=== PATIENT | female | born 1925 | race Caucasian/White ===

== ENCOUNTER 2016-10-05 14:26 | Emergency (ER) | payer MEDICARE, OTHER ==
[~2016-10-05] VITALS: Ht 165.1 cm; Wt 64.5 kg
[~2016-10-05 14:26] MED LIST: ALEN70TA2 PO; CHOL200047 PO; CRAN1CAP5 PO; DEXT1DRO8 BOTH_EYES; DIGO125T73 PO; FURO40TA4 PO; GABA-502 PO; LIDO700A6 TOPICAL; MELA1TAB16 PO; METO-272 PO; OXYB5TAB PO; POTA10CA42 PO; PSYL1CAP3 PO; TRAM50TA2 PO
[2016-10-05 14:37] VITALS: BP 118/70; PULSE 66; RESP 16; O2SAT 94
--- NOTE | 2016-10-05 14:43 | ED.REPORT ---
HPI-Abd Pain F 40 and Over Date of Service Oct 05, 2016 ED Provider: Dr. Finn Pt is an 89 year old female with a hx of HTN, chronic RLQ abdominal pain, chronic UTI, and Afib on Warfarin presenting to the ED complaining of waking up with blood in her mouth for the past week. Associated symptoms include abdominal pain and constipation, stating that she has bowel movements about every 2-3 weeks. She states that there is a tablespoon amount of bright red blood in her mouth when she wakes up. Denies vomiting, hematemesis, diarrhea, black/tarry stool, urinary issues, sore throat. Pt reports that she has had RLQ pain for years. Nursing Notes Stated Complaint: ABDOMINAL PAIN,BLEEDING IN MOUTH Chief Complaint: Female Abdominal Pain Nursing Notes Reviewed: Yes Allergies: Coded Allergies: ciprofloxacin (Verified Allergy, Unknown, UNKNOWN, 10/05/16) hydrocodone (Verified Allergy, Unknown, UNKNOWN, 10/05/16) oxycodone (Verified Allergy, Unknown, UNKNOWN, 10/05/16) propoxyphene napsylate (Verified Allergy, Unknown, UNKNOWN NOT ALLERGIC TO TYLENOL, 10/05/16) codeine (Verified Adverse Reaction, Severe, NAUSEA,HEADACHE, 10/05/16) Scheduled Alendronate Sodium (Fosamax) 70 Mg Tablet 70 MG PO WKLY Cephalexin (Keflex) 500 Mg Capsule 500 MG PO QID Cholecalciferol (Vitamin D3) (Vitamin D3) 2,000 Unit Capsule 2,000 UNIT PO DAILY Cranberry Extract/Vit C (Azo Cranberry Softgel) 1 Each Capsule 1 EACH PO BID Digoxin (Digoxin) 125 Mcg Tablet 125 MCG PO DAILY Furosemide (Furosemide) 40 Mg Tablet 40 MG PO DAILY Gabapentin (Gabapentin) 300 Mg Capsule 300 MG PO HS Lidocaine (Lidoderm) 700 Mg Adh..patch 1 PATCH TOPICAL DAILY Melatonin/Pyridoxine (Melatonin 5 mg Tablet) 1 Each Tablet 1 EACH PO HS Metoprolol Succinate ER (Metoprolol Succinate ER) 50 Mg Tab.er.24h 50 MG PO BID Oxybutynin Chloride ER (Oxybutynin Chloride ER) 5 Mg Tab.er.24 5 MG PO DAILY Pantoprazole DR (Pantoprazole DR) 40 Mg Tablet.dr 40 MG PO BID Potassium Chloride (Potassium Chloride) 10 Meq Capsule.er 20 MEQ PO BID TAKE WITH FOOD Psyllium Husk/Ca Carbonate (Metamucil Plus Calcium Capsule) 1 Each Capsule 2 EACH PO DAILY Scheduled PRN Dextran 70/Hypromellose/Pf (Artificial Tears Drops) 1 Each Droperette 1 DROP BOTH_EYES PRN PRN PRN DRY EYES Tramadol (Tramadol) 50 Mg Tablet 50 MG PO Q4H PRN PRN For Pain General Time Seen by MD: 14:42 Chief Complaint Abdominal pain, Other (Bleeding in mouth) Hx Obtained From: Patient, Daughter Arrived By: Walk-in Sudden in Onset?: No Onset Occurred: 1 week ago Symptom Duration: Since onset Progression since Onset: Constant Location: : RLQ Quality: Painful Severity: Current: Moderate Severity: Maximum: Severe Recent Healthcare: No recent hospitalization, Recent doctor visit Similar Sx Previous: No Past Medical History Past Medical History COPD Osteoarthritis Atrial fibrillation on Warfarin Chronic abdominal pain Chronic UTI Past Surgical History Hip replacements Right shoulder surgery Pacemaker Family History Congenital heart disease as well as cancer. Smoking History Former Smoker Social History Drug Use: Denies drug use Other Social History: Good social support, Local resident Ambulatory Status Independent Review of Systems Reports bleeding in mouth GI: Reports: Abdominal pain, Constipation, Denies: Bloody/tarry stool, Diarrhea, Hematemesis, Nausea, Vomiting Complete sys rev & neg: except as marked. Ears / Nose / Throat: Denies: Sore throat Physical Exam Vital Signs Vital Signs (First) Date Time Temp Pulse Resp B/P Pulse Ox O2 Delivery O2 Flow Rate FiO2 10/05/16 14:37 37.2 66 16 118/70 94 Room Air Initial VS: Reviewed Head / Eyes: Atraumatic, Normocephalic, PERRL Neck: Supple, Non-tender, Full range of motion Extremities: Vascular intact, Neuro intact, No swelling, No tenderness Skin: Warm, Dry, No cyanosis Neurologic: Alert, Oriented, Nonfocal Psychiatric: Mood/affect normal, Behavior normal, Normal thought content General/Constitutional: Awake, Alert Respiratory / Chest: Atraumatic, Breath sounds NL, Breath sounds = bilat, No respiratory distress Cardiovascular: Heart rate NL, Regular rhythm, Heart sounds NL Heart Rate / Rhythm: Positive: Irregular rhythm Abdomen: Atraumatic Tenderness/Guarding/Rebound: Positive: Tender RLQ... (Moderate) Fullness and tenderness in RLQ Back: Atraumatic, Inspection NL, Full range of motion ENT: Atraumatic, Airway patent, Mucous membranes moist, Pharynx NL No blood in the oropharynx Interpretation & Diagnostics Lab Results Interpretation Result Diagram: 10/05/16 1445 10/05/16 1445 Test 10/05/16 14:45 10/05/16 15:31 White Blood Count 5.9th/mm3 (3.8-10.1) Red Blood Count 4.02mil/mm3 (3.90-5.20) Hemoglobin 13.0g/dL (12.0-15.6) Hematocrit 40.2% (35.0-46.0) Mean Corpuscular Volume 100.0fL (81-100) Mean Corpuscular Hemoglobin 32.3pg (27.0-35.0) Mean Corpuscular Hemoglobin Concent 32.3% (32.0-37.0) Red Cell Distribution Width 13.9% (12.3-15.4) Platelet Count 204bil/L (150-400) Neutrophils (%) (Auto) 55.9% (40-74) Lymphocytes (%) (Auto) 30.9% (14-46) Monocytes (%) (Auto) 10.1% (4-12) Eosinophils (%) (Auto) 2.6% (0-5) Basophils (%) (Auto) 0.3% (0-3) Prothrombin Time 11.3sec (8.1-12.5) Prothromb Time International Ratio 1.05ratio Sodium Level 135mEq/L (134-144) Potassium Level 4.4mEq/L (3.5-5.2) Chloride Level 99mEq/L (97-108) Carbon Dioxide Level 23mmol/L (18-29) Blood Urea Nitrogen 16mg/dL (8-27) Creatinine 0.48mg/dL (0.57-1.00) Estimat Glomerular Filtration Rate 175mL/min (>59) Glucose Level 131mg/dL (60-99) Lactic Acid Level 1.3mmol/L (0.4-2.0) Calcium Level 9.3mg/dL (8.5-10.1) Magnesium Level 1.9mg/dL (1.6-2.6) Total Bilirubin 0.5mg/dL (0.0-1.2) Aspartate Amino Transf (AST/SGOT) 18U/L (0-50) Alanine Aminotransferase (ALT/SGPT) 10U/L (0-32) Alkaline Phosphatase 76U/L (25-165) Total Protein 6.3g/dL (6.4-8.4) Albumin 3.7g/dL (3.4-5.0) Lipase 27U/L (13-60) Digoxin Level 0.6nG/mL (0.9-2.0) Urine Color Yellow (YELLOW) Urine Appearance Slightly cloudy Urine pH 5.0 (5.0-8.0) Urine Specific [place] 1.020 (1.003-1.035) Urine Protein Negativemg/dL (NEG,TRACE) Urine Glucose (UA) Negativemg/dL (NEGATIVE) Urine Ketones Negativemg/dL (NEGATIVE) Urine Occult Blood Moderate (NEGATIVE) Urine Nitrite Positive (NEGATIVE) Urine Bilirubin Negative (NEGATIVE) Urine Urobilinogen Normalmg/dL (NORMAL) Urine Leukocyte Esterase Small (NEGATIVE) Urine RBC 3-10/hpf (0-2) Urine WBC 11-50/hpf (0-5) Urine Epithelial Cells Occasional/hpf (NONE-MOD) Urine Crystals None seen (NONE SEEN) Urine Bacteria Many/hpf (NONE-FEW) Urine Hyaline Casts None/lpf (NONE) Urine Granular Casts None seen (NONE SEEN) Urine Waxy Casts None seen (NONE SEEN) Urine Red Blood Cell Casts None seen (NONE SEEN) Urine White Blood Cell Casts None seen (NONE SEEN) Urine Mucus None seen (None Seen) Urine Trichomonas None seen (NONE SEEN) Urine Yeast None (NONE SEEN) Urinalysis Comment None Urine Culture Reflexed Indicated X-Ray Chest Interpretation Chest Xray Interpretation: IMPRESSION: No acute cardiopulmonary disease. Dictated by: Mihir Jean M.D. on 10/05/2016 at 16:58 View: Portable, 1 view Interpretation / Wet Read by: Interpret - Radiologist CT Abd / Pelvis Interpretation IMPRESSION: 1. No acute intra-abdominal findings. Normal appendix. 2. Please note, there is limited evaluation of the inferior pelvis given marked streak artifact from bilateral hip arthroplasties. 3. Diverticulosis. No acute diverticulitis. Dictated by: Zeinab Louis M.D. on 10/05/2016 at 16:12 Study type: Abdominal CT IV contrast Interpretation / Wet Read by: Interpret - Radiologist Re-Eval/Medical Decision Med Decision/Clinical Course No ongoing or laboratory evidence of bleeding. Hemoglobin stable. INR is normal. Patient refuses rectal exam. CT of the abdomen and chest x-ray failed to reveal identifiable abnormalities. Patient is feeling better. Wishes to be discharged home. Will plan to treat the UTI with full dose of Keflex, start pantoprazole, hold warfarin as the possible bleeding is further identified as an outpatient. Return and follow-up precautions given. Recommend close follow-up with PCP and probable outpatient endoscopy.. Re-Evaluation/Progress : Time of Eval: 17:17 Patient Status: Condition improved Re-Evaluation/Progress Note: Discussed CT, labs and x ray results. Pt denies black or bloody stool. Refuses rectal exam. Stressed the need for an outpatient endoscopy and colonoscopy which the patient is resistant to. Discussed plan for discharge. Pt understands and agrees. Counseled Regarding: Diagnosis, Lab results, Need for follow-up, When/why to return to ED Discharge & Departure Primary Impression: UTI (urinary tract infection) Urinary tract infection type: site unspecified Hematuria presence: without hematuria Qualified Code: N39.0 - Urinary tract infection, site not specified Disposition: Home Discharge Condition All VS Reviewed: Yes Condition: Improved Additional Instructions: Your abdominal CT scan and chest x ray both looked normal. No cause for your bleeding was identified. Stop taking the Warfarin for a few days and call your primary care doctor in the morning for follow up. Take the antacid as prescribed. I think you will need a colonoscopy and endoscopy to determine the cause of the bleeding. Call your primary care doctor tomorrow to facilitate this. Return to the ER if you develop any new or worsening symptoms such as blood in your stool or vomiting blood. Referrals: Neyda Miner MD (PCP) Fausto Attestation Portions of this note were transcribed by Amanda Gordillo. I, Dr. Finn personally performed the history, physical exam and medical decision-making; I reviewed and confirmed the accuracy of the information in the transcribed note. Signed by: Fausto Holley, 10/05/2016. copies to: Neyda Miner MD, Timothy Poncho SMITH Oct 05, 2016 14:43 AMANDA GORDILLO Oct 05, 2016 14:51
[2016-10-05] MEDS ORDERED: Ondansetron 2 mg/mL 2 mL Inj IVPUSH PRN (14:45)
[2016-10-05] MEDS ORDERED: fentaNYL-PF 50 mCg/mL 2 mL Inj IVPUSH PRN (14:45)
[2016-10-05 15:00] LABS: BASOPHILS % (AUTO) 0.3 % (0-3); EOSINOPHILS % (AUTO) 2.6 % (0-5); MONOCYTES % (AUTO) 10.1 % (4-12); Mean Corpuscular Hemoglobin 32.3 pg (27.0-35.0); NEUTROPHILS % (AUTO) 55.9 % (40-74); Platelet Count 204 bil/L (150-400)
[2016-10-05 15:17] LABS: INR 1.05 ratio
[2016-10-05 15:23] LABS: Magnesium 1.9 mg/dL (1.6-2.6)
[2016-10-05 16:09] LABS: APPEARANCE,URINE SLIGHTLY CLOUDY (CLEAR,HAZY); COLOR,URINE YELLOW (YELLOW); OCCULT BLOOD,URINE MODERATE (NEGATIVE); UROBILINOGEN,URINE NORMAL (NORMAL)
[2016-10-05 16:21] VITALS: BP 112/66; PULSE 68; RESP 16; O2SAT 96
--- NOTE | 2016-10-05 16:28 | DRSVH ---
PROCEDURE: CT ABDOMEN AND PELVIS WITH CONTRAST ([id number]) INDICATIONS: rlq pain TECHNIQUE: After the administration of intravenous contrast, 5 mm thick sections acquired from the diaphragm to the symphysis. 5 mm coronal and sagittal reformats were acquired. For radiation dose reduction, the following was used: automated exposure control, adjustment of mA and/or kV according to patient siz e. COMPARISON: [facility], CT, ABD/PELVIS W/CON (PNL), 07/17/2012, 13:22. [facility], CT, CT ABD PELVIS W CON, 11/02/2015, 12:25. FINDINGS: Image quality: Excellent. ABDOMEN: Lung bases: Lung bases are clear. Heart size is normal. Solid organs: Liver and spleen are normal in size and enhancement. Gallbladder appears mildly hyper emic. No definite pericholecystic fluid or gallbladder wall thickening. Biliary system is non dilate d. Pancreas enhances normally. A 7 mm diameter right adrenal gland nodule is unchanged when compare d with the study dated 07/17/12. An ill-defined 9 mm diameter left adrenal nodule is unchanged.. Kidn eys demonstrate normal size and enhancement, without hydronephrosis. Peritoneum and bowel: Bowel loops demonstrate normal wall thickness and caliber. The appendix is thi n walled and gas filled. There are scattered sigmoid diverticula. No evidence for diverticulitis. No free fluid or air. Nodes and vessels: No retroperitoneal or mesenteric adenopathy by size criteria. Aorta and inferior vena cava are normal in size. There are scattered atheromatous calcifications throughout the aorta a nd iliac arteries bilaterally. Miscellaneous: No ventral hernias. PELVIS: Genitourinary: Bladder wall thickness is normal. Miscellaneous: No inguinal hernias or adenopathy. Bones: No suspicious bony lesions. No vertebral body compression fractures. Bilateral total hip ar throplasties are grossly intact. Marked streak artifact limits evaluation of the inferior pelvis. IMPRESSION: 1. No acute intra-abdominal findings. Normal appendix. 2. Please note, there is limited evaluation of the inferior pelvis given marked streak artifact from bilateral hip arthroplasties. 3. Diverticulosis. No acute diverticulitis. Dictated by: Zeinab Louis M.D. on 10/05/2016 at 16:12 Approved by: Zeinab Louis M.D. on 10/05/2016 at 16:26
--- NOTE | 2016-10-05 17:02 | DRSVH ---
PROCEDURE: X-RAY CHEST ONE VIEW, PORTABLE ([id number]) INDICATIONS: 89 year-old female with hematemesis. TECHNIQUE: One view of the chest was acquired. COMPARISON: [facility], CT, CT CHEST WO CON, 01/02/2016, 14:16. [facility], CR, XR [employer] PA CXR MIN 3VW RT, 01/02/2016, 13:12. [facility], CR, XR CHEST 2VW, 10/05, 13:31. [facility], CR, XR CHEST 2VW, 10/06/2014, 14:56. FINDINGS: Surgical changes and devices: Bilateral shoulder arthroplasties are again noted, as well as left ches t wall dual chamber pacemaker. Lungs and pleura: No pleural effusions or pneumothorax. Lungs are clear. Mediastinum: Mediastinal contours appear normal. Heart size is normal. There is aortic atheroscler osis. Bones and chest wall: No suspicious bony lesions. Nonacute posterior right seventh rib fracture is again noted. Overlying soft tissues appear unremarkable. IMPRESSION: No acute cardiopulmonary disease. Dictated by: Mihir Jean M.D. on 10/05/2016 at 16:58 Approved by: Mihir Jean M.D. on 10/05/2016 at 17:00
[2016-10-05 17:24] VITALS: BP 125/79; PULSE 63; RESP 18; O2SAT 94
[2016-10-05 17:29] VITALS: BP 125/79; PULSE 63; RESP 18; O2SAT 94
[2016-10-05] MEDS ORDERED: CEPH-512 PO (17:32)
[2016-10-05] MEDS ORDERED: PANT40TA3 PO (17:32)
== END 2016-10-05 17:38 | disposition home or self-care (01) ==
LOC: SED 14:26
DX: N39.0 Urinary tract infection, site not specified (principal); B96.1 Klebsiella pneumoniae [K. pneumoniae] as the cause of diseases classified elsewhere; K59.00 Constipation, unspecified; I11.9 Hypertensive heart disease without heart failure; I48.91 Unspecified atrial fibrillation; J44.9 Chronic obstructive pulmonary disease, unspecified; Z87.440 Personal history of urinary (tract) infections; Z95.0 Presence of cardiac pacemaker; Z79.01 Long term (current) use of anticoagulants; Z98.890 Other specified postprocedural states; Z87.891 Personal history of nicotine dependence; Z88.1 Allergy status to other antibiotic agents; Z88.5 Allergy status to narcotic agent; Z88.6 Allergy status to analgesic agent
CPT/HCPCS: 36415; 71010; 74177; 80053; 80162; 81000; 83605; 83690; 83735; 85025; 85610; 87077; 87086; 87088; 87186; 99284; Q9967

== ENCOUNTER 2016-11-21 22:14 | Emergency (ER) | payer MEDICARE, OTHER ==
[~2016-11-21 22:14] MED LIST changes: +CEPH-512 PO; +LIDO700A10 TOPICAL; -LIDO700A6 TOPICAL; -METO-272 PO; +METO-369 PO; +PANT40TA3 PO
[2016-11-21 22:17] VITALS: BP 140/78; PULSE 71; RESP 16; O2SAT 96
--- NOTE | 2016-11-21 22:41 | ED.REPORT ---
HPI-Trauma Minor / Fall Date of Service Nov 21, 2016 ED Provider: Sam Gonzalez DO The patient is an 89 year old female with a hx of CHF, COPD, HTN and a pacemaker presenting to the ED via EMS complaining of right shoulder and knee pain onset a few hours prior to arrival in the ED. She claims to have fallen on the ground and laid there for three hours before using her Life-Alert. She denies hitting her head, but says that her neck on the chair when she fell. Denied symptoms include back pain or SOB. Nursing Notes Stated Complaint: GLF R SHOULDER PAIN Chief Complaint: Multiple Trauma/Fall Nursing Notes Reviewed: Yes Allergies: Coded Allergies: ciprofloxacin (Verified Allergy, Unknown, UNKNOWN, 10/05/16) hydrocodone (Verified Allergy, Unknown, UNKNOWN, 10/05/16) oxycodone (Verified Allergy, Unknown, UNKNOWN, 10/05/16) propoxyphene napsylate (Verified Allergy, Unknown, UNKNOWN NOT ALLERGIC TO TYLENOL, 10/05/16) codeine (Verified Adverse Reaction, Severe, NAUSEA,HEADACHE, 10/05/16) Uncoded Allergies: NAPSYLATE (Allergy, Unknown, 11/21/16) Scheduled Alendronate Sodium (Fosamax) 70 Mg Tablet 70 MG PO WKLY Cephalexin (Keflex) 500 Mg Capsule 500 MG PO QID Cholecalciferol (Vitamin D3) (Vitamin D3) 2,000 Unit Capsule 2,000 UNIT PO DAILY Cranberry Extract/Vit C (Azo Cranberry Softgel) 1 Each Capsule 1 EACH PO BID Digoxin (Digoxin) 125 Mcg Tablet 125 MCG PO DAILY Furosemide (Furosemide) 40 Mg Tablet 40 MG PO DAILY Gabapentin (Gabapentin) 300 Mg Capsule 300 MG PO HS Lidocaine (Lidoderm) 700 Mg Adh..patch 1 PATCH TOPICAL DAILY Melatonin/Pyridoxine (Melatonin 5 mg Tablet) 1 Each Tablet 1 EACH PO HS Metoprolol Succinate ER (Metoprolol Succinate ER) 50 Mg Tab.er.24h 50 MG PO BID Oxybutynin Chloride ER (Oxybutynin Chloride ER) 5 Mg Tab.er.24 5 MG PO DAILY Pantoprazole DR (Pantoprazole DR) 40 Mg Tablet.dr 40 MG PO BID Potassium Chloride (Potassium Chloride) 10 Meq Capsule.er 20 MEQ PO BID TAKE WITH FOOD Psyllium Husk/Ca Carbonate (Metamucil Plus Calcium Capsule) 1 Each Capsule 2 EACH PO DAILY Scheduled PRN Dextran 70/Hypromellose/Pf (Artificial Tears Drops) 1 Each Droperette 1 DROP BOTH_EYES PRN PRN PRN DRY EYES Tramadol (Tramadol) 50 Mg Tablet 50 MG PO Q4H PRN PRN For Pain General Time Seen by MD: 22:41 Chief Complaint Fall Hx Obtained From: Patient Arrived By: Ambulance Onset Occurred: 1 - 4 hours ago Symptom Duration: Since onset Caused by: Accidental, Fall on ground Context: Occurred at: Home injury Location: Knee right Shoulder right Severity: Current: Mild Severity: Maximum: Moderate Past Medical History Past Medical History COPD Osteoarthritis Atrial fibrillation on Warfarin Chronic abdominal pain Chronic UTI Past Surgical History Hip replacements Right shoulder surgery Pacemaker Family History Congenital heart disease as well as cancer. Smoking History Former Smoker Social History Drug Use: Denies drug use Other Social History: Good social support, Local resident Ambulatory Status Independent Review of Systems Respiratory: Denies: Shortness of breath Musculoskeletal: Reports: Joint pain (right shoulder pain and right knee pain) , Denies: Back pain Complete sys rev & neg: except as marked. Physical Exam Initial Vital Signs Vital Signs (First) Date Time Temp Pulse Resp B/P Pulse Ox O2 Delivery O2 Flow Rate FiO2 11/21/16 22:17 36.4 71 16 140/78 96 Room Air Initial VS: Reviewed Head / Eyes: Atraumatic, Normocephalic Respiratory: Breath sounds normal, No respiratory distress Extremities: Vascular intact Skin: Warm, Dry Neurologic: Alert, Oriented Psychiatric: Mood/affect normal, Behavior normal Neck: Atraumatic 4x2 cm ecchymosis over right side of neck Upper Extremity / MS: Atraumatic, Full range of motion, Non-tender Right Shoulder: Positive: Tenderness present... (Moderate; proximal to the anterior shaft of the humerus), Negative: Ecchymosis present Trauma / Burn / Environmental: Negative: Abrasion No bony step offs Interpretation & Diagnostics X-Ray Interpretation Xray Interpretation: No acute fracture. Previous total shoulder replacement. X-Ray Ordered: Shoulder right Interpretation / Wet Read by: Wet read ED physician Interpretation: Normal exam, No fracture/dislocation Xray Interpretation: No acute fracture. Marshall-knee arthroplasty X-Ray Ordered: Knee right Interpretation / Wet Read by: Wet read ED physician Interpretation: Normal exam, No fracture/dislocation Re-Eval/Medical Decision Med Decision/Clinical Course 89-year-old female who is legally blind presenting after a fall when she tripped on a chair in her home. This happened to her multiple times previously and she is concerned about fractures. She has a history of a right shoulder arthroplasty and a right knee hemiarthroplasty. There are no fractures visualized on my interpretation of her x-rays today, and on her exam she has full and nontender range of motion of these joints. There is a small bruise on her neck but she has no painful range of motion of her neck and did not hit her neck or head she asserts. She denies any dizziness and no other mechanism for her falls identified other than her visual impairment and tripping. I discussed her care with her daughter and her and she will go home with close follow-up if her shoulder or knee become more painful. I considered labs for rhabdo, but she notes that there is no pain anywhere in her muscles, and she sat for less than 3 hours before deciding to push her life alert button, feeling bad that she uses it too often Re-Evaluation/Progress : Time of Eval: 23:55 Re-Evaluation/Progress Note: Patient rechecked. Discussed X-Ray results with the ptasif's daughter and performed additional physical exam. Counseled Regarding: Diagnosis, Lab results, Need for follow-up, When/why to return to ED Discharge & Departure Impression: Primary Impression: Fall Encounter type: initial encounter Qualified Code: W19.XXXA - Unspecified fall, initial encounter Additional Impressions: Right shoulder injury Encounter type: initial encounter Qualified Code: S49.91XA - Unspecified injury of right shoulder and upper arm, initial encounter Right knee pain Chronicity: acute Qualified Code: M25.561 - Pain in right knee Neck contusion Disposition: Home Discharge Condition All VS Reviewed: Yes Condition: Stable Patient Instructions: Knee Pain (ED), Shoulder Pain (ED) Additional Instructions: Your X-rays were normal and reassuring. There was no evidence of any fractures in your shoulder or knee. You can try using ice to help with the pain. You can also take ibuprofen or tylenol for pain. Follow up with your primary care physician later this week, especially if your symptoms are not improving Return to the emergency department if you develop any new or concerning symptoms. Referrals: Neyda Miner MD (PCP) Scribe Attestation Portions of this note were transcribed by Gianni Barajas and Kelly Ordaz. I, Dr. Gonzalez personally performed the history, physical exam and medical decision -making; I reviewed and confirmed the accuracy of the information in the transcribed note. Signed by: Gianni Barajas and Kelly Ordaz, [place], 11/22/16 copies to: Neyda Miner MD, Gary R DO Nov 21, 2016 22:41 Nov 21, 2016 23:38 Joanne Ordaz Nov 21, 2016 23:51
--- NOTE | 2016-11-22 08:36 | DRSVH ---
PROCEDURE: X-RAY RIGHT KNEE, THREE VIEWS ([id number]) INDICATIONS: glf TECHNIQUE: 3 views of the knee were acquired. COMPARISON: , RG, KNEE 3VW (RT) , 07/13, 11:52. , RG, KNEE 1 OR 2VW (RT) , 10/1998, 11:56. , CR, XR SHOULDER MIN 2VW RT, 11/21/2016, 22:37. FINDINGS: Artifact (likely grid lines) can be seen on the AP view. Bones: Medial hemiarthroplasty changes are seen. No findings of hardware failure or hardware loosenin g are seen. Degenerative changes are seen throughout, with relatively prominent spurs along the jody ins of the patella. No displaced, acute fractures are seen. An apparent remote fracture can be seen involving the centra l aspect of the tibial plateau. No suspicious lytic or blastic lesions are seen. Soft tissues: No joint effusion. No suspicious soft tissue calcifications. Atherosclerotic calcifi cation is noted. IMPRESSION: Postoperative and degenerative changes are seen, without an acute abnormality identified by plain film. Dictated by: Aftab Burden M.D. on 11/22/2016 at 8:32 Approved by: Aftab Burden M.D. on 11/22/2016 at 8:35
--- NOTE | 2016-11-22 08:38 | DRSVH ---
PROCEDURE: X-RAY RIGHT SHOULDER, MINIMUM TWO VIEWS ([id number]) INDICATIONS: glf TECHNIQUE: 3 views of the shoulder were acquired. COMPARISON: [facility], CR, SHOULDER MIN 2VW (LT), 03/10/19 15, 8:18. [facility], CR, XR KNEE 3VW RT, 11/21/2016, 22:37. FINDINGS: Bones: There is a right hemiarthroplasty seen. No findings of hardware failure or hardware loosenin g are seen. No fractures or dislocations. No suspicious bony lesions. Visualized ribs appear intac t. Age-appropriate bony degenerative changes are seen. Soft tissues: No suspicious soft tissue calcifications. A pacer device is seen. The visualized lung demonstrates an unremarkable appearance. IMPRESSION: Right shoulder postoperative changes are seen. No acute bony abnormality can be seen by plain film. Dictated by: Aftab Burden M.D. on 11/22/2016 at 8:35 Approved by: Aftab Burden M.D. on 11/22/2016 at 8:36
== END 2016-11-22 00:10 | disposition home or self-care (01) ==
LOC: EDBD 22:14 → SED 22:14 → EDUNIT# 22:14 → SED 11-22 00:10
DX: S10.83XA Contusion of other specified part of neck, initial encounter (principal); S49.81XA Other specified injuries of right shoulder and upper arm, initial encounter; W01.0XXA Fall on same level from slipping, tripping and stumbling without subsequent striking against object, initial encounter; Y93.89 Activity, other specified; Y92.009 Unspecified place in unspecified non-institutional (private) residence as the place of occurrence of the external cause; Y99.8 Other external cause status; M25.561 Pain in right knee; I11.0 Hypertensive heart disease with heart failure; I50.9 Heart failure, unspecified; I48.91 Unspecified atrial fibrillation; J44.9 Chronic obstructive pulmonary disease, unspecified; Z96.649 Presence of unspecified artificial hip joint; Z95.0 Presence of cardiac pacemaker; Z98.890 Other specified postprocedural states; Z79.01 Long term (current) use of anticoagulants; Z87.891 Personal history of nicotine dependence; Z88.1 Allergy status to other antibiotic agents; Z88.5 Allergy status to narcotic agent

== ENCOUNTER 2016-11-29 15:45 | Emergency (ER) | payer MEDICARE, OTHER ==
[~2016-11-29] VITALS: Ht 165.1 cm; Wt 64.5 kg
[2016-11-29 16:27] VITALS: BP 134/65; PULSE 80; RESP 16; O2SAT 96
--- NOTE | 2016-11-29 16:43 | ED.REPORT ---
HPI-Abd Pain F 40 and Over Date of Service Nov 29, 2016 ED Provider: Miles Finn DO Patient is an 89 year old female with a history of CHF, pacemaker and hypertension who presents to the ED complaining of vomiting for the past two days. Associated symptoms include constipation and generalized weakness. The patient reports she has been unable to keep her medications down for the past two days. She denies chest pain, abdominal pain, nausea, fever, shortness of breath, dysuria or urinary urgency. Patient's daughter reports that she has had a recurrent UTI and been dealing with continuous nausea over the past month. Nursing Notes Stated Complaint: VOMITING, DEHYDRATION Chief Complaint: Female Abdominal Pain Nursing Notes Reviewed: Yes Allergies: Coded Allergies: ciprofloxacin (Verified Allergy, Unknown, UNKNOWN, 11/29/16) hydrocodone (Verified Allergy, Unknown, UNKNOWN, 11/29/16) oxycodone (Verified Allergy, Unknown, UNKNOWN, 11/29/16) propoxyphene napsylate (Verified Allergy, Unknown, UNKNOWN NOT ALLERGIC TO TYLENOL, 11/29/16) codeine (Verified Adverse Reaction, Severe, NAUSEA,HEADACHE, 11/29/16) Uncoded Allergies: NAPSYLATE (Allergy, Unknown, 11/21/16) Scheduled Alendronate Sodium (Fosamax) 70 Mg Tablet 70 MG PO WKLY Cephalexin (Keflex) 500 Mg Capsule 500 MG PO QID Cholecalciferol (Vitamin D3) (Vitamin D3) 2,000 Unit Capsule 2,000 UNIT PO DAILY Cranberry Extract/Vit C (Azo Cranberry Softgel) 1 Each Capsule 1 EACH PO BID Digoxin (Digoxin) 125 Mcg Tablet 125 MCG PO DAILY Furosemide (Furosemide) 40 Mg Tablet 40 MG PO DAILY Gabapentin (Gabapentin) 300 Mg Capsule 300 MG PO HS Lidocaine (Lidoderm) 700 Mg Adh..patch 1 PATCH TOPICAL DAILY Melatonin/Pyridoxine (Melatonin 5 mg Tablet) 1 Each Tablet 1 EACH PO HS Metoprolol Succinate ER (Metoprolol Succinate ER) 50 Mg Tab.er.24h 50 MG PO BID Oxybutynin Chloride ER (Oxybutynin Chloride ER) 5 Mg Tab.er.24 5 MG PO DAILY Pantoprazole DR (Pantoprazole DR) 40 Mg Tablet.dr 40 MG PO BID Potassium Chloride (Potassium Chloride) 10 Meq Capsule.er 20 MEQ PO BID TAKE WITH FOOD Psyllium Husk/Ca Carbonate (Metamucil Plus Calcium Capsule) 1 Each Capsule 2 EACH PO DAILY Scheduled PRN Dextran 70/Hypromellose/Pf (Artificial Tears Drops) 1 Each Droperette 1 DROP BOTH_EYES PRN PRN PRN DRY EYES Tramadol (Tramadol) 50 Mg Tablet 50 MG PO Q4H PRN PRN For Pain General Time Seen by MD: 16:22 Chief Complaint Other (vomiting) Hx Obtained From: Patient, Daughter Arrived By: Walk-in Sudden in Onset?: Yes Onset Occurred: 2 days ago Symptom Duration: Since onset Severity: Current: No pain currently Associated with: Reports: Anorexia, Constipation Recent Healthcare: Recent doctor visit Past Medical History Past Medical History Osteoarthritis Atrial fibrillation Chronic abdominal pain Chronic UTI Reports: Congestive heart failure Past Surgical History Hip replacements Right shoulder surgery Pacemaker Family History Congenital heart disease as well as cancer. Smoking History Former Smoker Social History Drug Use: Denies drug use Other Social History: Good social support, Local resident Ambulatory Status Independent Review of Systems Constitutional: Reports: Weakness - generalized, Denies: Fever Respiratory: Denies: Shortness of breath Cardiovascular: Denies: Chest pain GI: Reports: Constipation, Denies: Abdominal pain, Nausea, Vomiting Female: Denies: Dysuria, Urinary urgency Complete sys rev & neg: except as marked. Physical Exam Vital Signs Vital Signs (First) Date Time Temp Pulse Resp B/P Pulse Ox O2 Delivery O2 Flow Rate FiO2 11/29/16 16:27 36.7 80 16 134/65 96 Room Air Initial VS: Reviewed General/Constitutional: Awake, Alert Respiratory / Chest: Atraumatic, Breath sounds NL, Breath sounds = bilat, No respiratory distress Cardiovascular: Heart rate NL, Regular rhythm, Heart sounds NL Abdomen: Atraumatic, Soft Bowel Sounds / Distention: Positive: Distention mild Back: Atraumatic, Inspection NL Head / Eyes: Atraumatic, Normocephalic Skin: Atraumatic, Color NL, No rash, Warm, Dry Neurologic: Oriented X3, Speech NL Upper Extremity / MS: Inspection NL, Full range of motion Interpretation & Diagnostics ECG Interpretation ECG Interpretation: atrial fibrillation RBBB Time: 16:30 Interpreted by: ED physician Normal ECG Interpretation: Normal rate (69) Discharge & Departure Shift Change Sign-Out Patient Care Transferred: Yes Discussed Complaint(s): Yes Laboratory Evaluation: Ordered, not yet done Imaging Studies: Ordered, not yet done Primary Impression: Vomiting Discharge Condition All VS Reviewed: Yes Condition: Stable Referrals: Neyda Miner MD (PCP) Care Transferred to: Dr. Mcneal Care Transferred at: 18:00 Fausto Attestation Portions of this note were transcribed by Kelly Ordaz. I, Dr. Aleks Scott personally performed the history, physical exam and medical decision-making; I reviewed and confirmed the accuracy of the information in the transcribed note. Signed by: Fausto Larson, 11/29/16 copies to: Neyda Miner MD, Timothy S DO Nov 29, 2016 16:43 Joanne Ordaz Nov 29, 2016 16:51
[2016-11-29 18:26] LABS: BASOPHILS % (AUTO) 0 % (0-3); EOSINOPHILS % (AUTO) 0.2 % (0-5); MONOCYTES % (AUTO) 5.4 % (4-12); Mean Corpuscular Volume 101.7 fL (81-100); NEUTROPHILS % (AUTO) 82.8 % (40-74); Platelet Count 176 bil/L (150-400)
--- NOTE | 2016-11-29 19:36 | DRSVH ---
PROCEDURE: CT ABDOMEN AND PELVIS WITH CONTRAST ([id number]) INDICATIONS: persistent vomiting TECHNIQUE: After the administration of intravenous contrast, 5 mm thick sections acquired from the diaphragm to the symphysis. 5 mm coronal and sagittal reformats were acquired. For radiation dose reduction, the following was used: automated exposure control, adjustment of mA and/or kV according to patient siz e. COMPARISON: [facility], CT, ABD/PELVIS W/CON (PNL), 07/17/2012, 13:22. [facility], CT, CT ABD PELVIS W CON, 10/05/2016, 15:58. FINDINGS: Image quality: Excellent. ABDOMEN: Lung bases: Lung bases are clear. Heart size is enlarged. Solid organs: Liver and spleen are normal in size and enhancement. 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 Gallbladder is distended. No gallbladder wall thickening or pericholecystic fluid. Bi liary system is non dilated. Pancreas enhances normally. No right adrenal nodules. A there is a lef t adrenal nodule slightly increased in size when compared with the study dated 07/17/12. Given the ind olent growth this likely represents an adrenal adenoma. Kidneys demonstrate normal size and enhanceme nt, without hydronephrosis. There is trace left midpole ranjeet-nephric fluid which is new and compared with the study dated 10/05/16 (series 2, images 29-31). No striated nephrograms are noted. Peritoneum and bowel: Bowel loops demonstrate normal wall thickness and caliber. The appendix is thi n walled and gas filled. There is extensive sigmoid colon diverticulosis. No mucosal thickening or pe ricolonic fat stranding to suggest acute diverticulitis. No free fluid or air. Nodes and vessels: No retroperitoneal or mesenteric adenopathy by size criteria. Aorta and inferior vena cava are normal in size. There are scattered atheromatous calcifications throughout the aorta and iliac arteries bilaterally. Miscellaneous: No ventral hernias. PELVIS: Genitourinary: The bladder is poorly characterized given the marked streak artifact from the bilatera l hip arthroplasties. However, visualized portions of the bladder appear thin-walled. Miscellaneous: No inguinal hernias or adenopathy. Bones: No suspicious bony lesions. No vertebral body compression fractures. Bilateral hip arthropl asties are grossly intact. IMPRESSION: 1. Mild, focal left perinephric fat stranding. The significance of this finding is unclear. This is n ew when compared with the study dated 10/05/16. Early acute pyelonephritis could be considered in the differential. No hydronephrosis or striated nephrograms. 2. Gallbladder distention without wall thickening or pericholecystic fluid. Comparison with laborator y values is recommended to exclude early gallbladder obstruction or infection. 3. Normal appendix. 4. Diverticulosis. No acute diverticulitis. Dictated by: Zeinab Louis M.D. on 11/29/2016 at 19:23 Approved by: Zeinab Louis M.D. on 11/29/2016 at 19:34
[2016-11-29 20:15] LABS: APPEARANCE,URINE CLEAR (CLEAR,HAZY); COLOR,URINE YELLOW (YELLOW)
[2016-11-29 20:16] LABS: OCCULT BLOOD,URINE LARGE (NEGATIVE)
[2016-11-29 21:37] VITALS: BP 123/85; PULSE 75; RESP 18; O2SAT 94
[2016-11-29 23:09] VITALS: BP 128/82; PULSE 77; RESP 18; O2SAT 96
== END 2016-11-29 23:10 ==
LOC: SED 15:45
DX: R11.2 Nausea with vomiting, unspecified (principal); I10 Essential (primary) hypertension; I50.9 Heart failure, unspecified; Z96.653 Presence of artificial knee joint, bilateral; Z95.0 Presence of cardiac pacemaker; Z87.440 Personal history of urinary (tract) infections; Z87.891 Personal history of nicotine dependence; Z88.5 Allergy status to narcotic agent; Z88.1 Allergy status to other antibiotic agents
CPT/HCPCS: 36415; 74177; 80053; 80162; 81000; 83690; 83735; 85025; 87086; 93005; 99285; Q9967